=== PATIENT | male | born 1945 | race Caucasian/White ===

== ENCOUNTER → 2017-05-02 | Outpatient (CLI) | payer BC, MEDICARE ==
[~2017-05-02] MED LIST: IOPAMIDOL 370 MG/ML 200 ML INFUS..BTL INJ ONE; SODIUM CHLORIDE 0.9% 50ML 50 ML ONE
[2017-05-02 10:26] LABS: BLOOD UREA NITROGEN 11 mg/dL (7-26); BUN/CREATININE RATIO 13 (6-25); CREATININE, SERUM 0.82 mg/dL (0.72-1.25); EST GLOMERULAR FILTRATION RATE > 60 ML/MIN (60-)
--- NOTE | 2017-05-02 13:06 | Diagnostic Imaging Report ---
PROCEDURE: CT ABDOMEN WITH AND WITHOUT CONTRAST TECHNIQUE: The abdomen was scanned utilizing a multidetector helical scanner from the diaphragm to the iliac crest before and after the IV administration of 100 cc of Isovue 370 and the oral administration of water. Precontrast, arterial, venous and delayed phases were obtained as part of a renal mass protocol. Coronal and sagittal multiplanar reformations were obtained. COMPARISON: Patients [facility], CT, CT ABDOMEN/PELVIS W, 03/16/2017, 9:57. INDICATIONS: KIDNEY LESION FINDINGS: LOWER THORAX: No pulmonary nodules. Minimal right lower lobe dependent atelectasis. HEPATOBILIARY: 1.1 cm simple cyst in hepatic segment VII near the dome (series 3, image 22). No other focal hepatic lesions. No biliary ductal dilatation. Gallbladder is unremarkable. SPLEEN: No splenomegaly. PANCREAS: No focal masses or ductal dilatation. ADRENALS: No adrenal nodules. KIDNEYS: 2.0 x 1.9 x 1.7 cm partially exophytic heterogeneously enhancing (14, 67, 98, and 55 HU on precontrast, arterial, venous and delayed phases, respectively) mass in the lower pole of the right kidney (series 4, image 85), which contains enhancing mural nodules and septations (series 502, images 67 and 69). 4-5 mm hypodense lesion in the inferior pole of the right kidney (series 7, image 81), which is too small to characterize. No other focal renal lesions. No renal or ureteral calculi. No hydronephrosis or obstruction. Good opacification of the renal collecting system, renal pelves, and proximal and mid ureters, without filling defects, strictures, or extrinsic compressions. PERITONEUM / RETROPERITONEUM: No free air or fluid. PELVIC ORGANS: Bladder shows no focal lesions or wall thickening. Prostate is enlarged. Fat containing right inguinal hernia. LYMPH NODES: No intra-abdominal, retroperitoneal, pelvic, or inguinal adenopathy. VESSELS: The celiac trunk, superior and inferior mesenteric, and bilateral renal arteries are patent. Portal, superior mesenteric, and splenic veins are patent. IVC filter in place. No filling defects are seen in the IVC or renal veins. GI TRACT: Visualized portions of bowel show no dilation or obstruction. BONES AND SOFT TISSUES: No acute bony abnormalities. No aggressive lytic or blastic lesions. Soft tissues are unremarkable. IMPRESSION: 1. 2.0 cm enhancing lesion in the inferior pole of the right kidney, with imaging characteristics highly suspicious for renal cell carcinoma (likely clear cell subtype). No evidence of local adenopathy, vascular invasion or distant metastatic disease in the visualized abdomen. Barry Patrick M.D. Dictated by: Barry Patrick M.D. on 05/02/2017 at 13:15 Electronically approved by: Barry Patrick M.D. on 05/02/2017 at 13:15
== END ==
LOC: CT 08:58
PROVIDERS: ATTEND Internal Medicine
DX: N28.9 Disorder of kidney and ureter, unspecified (principal)
CPT/HCPCS: 36415; 74170; 82565; 84520; Q9967

== ENCOUNTER 2017-08-19 12:39 | Inpatient (IN) | payer BC, MEDICARE ==
[~2017-08-19] VITALS: Ht 152.4 cm; Wt 86.2 kg
[~2017-08-19 12:39] MED LIST changes: +AMLODIPINE BESYL5 MG PO; +COUMADIN3 MG PO; +GELATIN SPONGE SZ 100 ONE; -IOPAMIDOL 370 MG/ML 200 ML INFUS..BTL INJ ONE; +MANNITOL 25% 12.5GM/50ML 50 ML ONE; -SODIUM CHLORIDE 0.9% 50ML 50 ML ONE
--- OUTSIDE RECORDS SUMMARY | 2017-08-19 12:40 | XMS REPORT ---
Author Author [facility] Address Unknown Phone Unavailable Care Team Providers Care Supervisor [employer] Name Role Phone SEAN BENSON Unavailable Unavailable KAI GUILLAUME Unavailable Unavailable Problems This patient has no known problems. Allergies, Adverse Reactions, Alerts This patient has no known allergies or adverse reactions. Medications This patient has no known medications. Results Test Description Test Time Test Comments Text Results Atomic Results Result Comments CT ABDOMEN WOW [place] [address] Patient Name: GRACE INIGUEZ MR #: [id number] : 1945 Age/Sex: 72/M Req #: [id number] Adm Physician: Ordered by: SEAN BENSON MD Report #: [id number] Location: CT Room/Bed: Procedure: [id number] CT/CT ABDOMEN WOW Exam Date: 05/02/17 Exam Time: 1100 REPORT STATUS: Signed PROCEDURE: CT ABDOMEN WITH AND WITHOUT CONTRAST TECHNIQUE: The abdomen was scanned utilizing a multidetector helical scanner from the diaphragm to the iliac crest before and after the IV administration of 100 cc of Isovue 370 and the oral administration of water. Precontrast, arterial, venous and delayed phases were obtained as part of a renal mass protocol. Coronal and sagittal multiplanar reformations were obtained. COMPARISON: [facility], CT, CT ABDOMEN/PELVIS W, 03/16/2017, 9:57. INDICATIONS: KIDNEY LESION FINDINGS: LOWER THORAX: No pulmonary nodules. Minimal right lower lobe dependent atelectasis. HEPATOBILIARY: 1.1 cm simple cyst in hepatic segment VII near the dome (series 3, image 22). No other focal hepatic lesions. No biliary ductal dilatation. Gallbladder is unremarkable. SPLEEN: No splenomegaly. PANCREAS: No focal masses or ductal dilatation. ADRENALS: No adrenal nodules. KIDNEYS: 2.0 x 1.9 x 1.7 cm partially exophytic heterogeneously enhancing (14, 67, 98, and 55 HU on precontrast, arterial, venous and delayed phases, respectively) mass in the lower pole of the right kidney (series 4, image 85), which contains enhancing mural nodules and septations (series 502, images 67 and 69). 4-5 mm hypodense lesion in the inferior pole of the right kidney (series 7, image 81), which is too small to characterize. No other focal renal lesions. No renal or ureteral calculi. No hydronephrosis or obstruction. Good opacification of the renal collecting system, renal pelves, and proximal and mid ureters, without filling defects, strictures, or extrinsic compressions. PERITONEUM / RETROPERITONEUM: No free air or fluid. PELVIC ORGANS: Bladder shows no focal lesions or wall thickening. Prostate is enlarged. Fat containing right inguinal hernia. LYMPH NODES: No intra-abdominal, retroperitoneal, pelvic, or inguinal adenopathy. VESSELS: The celiac trunk, superior and inferior mesenteric, and bilateral renal arteries are patent. Portal, superior mesenteric, and splenic veins are patent. IVC filter in place. No filling defects are seen in the IVC or renal veins. GI TRACT: Visualized portions of bowel show no dilation or obstruction. BONES AND SOFT TISSUES : No acute bony abnormalities. No aggressive lytic or blastic lesions. Soft tissues are unremarkable. IMPRESSION: 1. 2.0 cm enhancing lesion in the inferior pole of the right kidney, with imaging characteristics highly suspicious for renal cell carcinoma (likely clear cell subtype). No evidence of local adenopathy, vascular invasion or distant metastatic disease in the visualized abdomen. Eulalia Patrick M.D. Dictated by: Eulalia Patrick M.D. on 05/02/2017 at 13:15 Electronically approved by : Eulalia Patrick M.D. on 05/02/2017 at 13:15 Dictated By : EULALIA PATRICK MD 14 Transcribed By: JHON on 05/02/171314 COPY TO: SEAN BENSON MD CT BRAIN WO [place] [address] Patient Name: GRACE INIGUEZ MR #: [id number] : 1945 Age/Sex: 71/M Req #: [id number] Adm Physician: Ordered by: KAI GUILLAUME MD Report #: [id number] Location: ER Room/Bed: Procedure: [id number] CT/CT BRAIN WO Exam Date: 03/16/17 Exam Time: 1115 REPORT STATUS: Signed Examination: CT BRAIN WITHOUT CONTRAST History:Fall. Head injury. Comparison studies:None Technique: Axial images were obtained from the skull base to the vertex. Coronal and sagittal images reconstructed from the axial data. Intravenous contrast: None given for this examination however, there is residual contrast seen from chest abdomen and pelvic CT performed earlier today. Findings: Scalp: No abnormalities. Bones: No fractures, blastic or lytic lesions. Brain sulci: Appropriate for age. Ventricles: Normal in size and configuration. No hydrocephalus. Extra-axial space: No abnormalities. Parenchyma: No abnormal densities. No masses, hemorrhage, acute or chronic vascular insults. Sellar/suprasellar region: No abnormalities. Craniocervical junction: Patent foramen magnum. No Chiari one malformation. Incidental findings: None. Impression: No intracranial abnormalities. Signed by: Dr. Kiya Marie M.D. on 03/16/2017 12:17 PM Dictated By: KIYA MENDEZ MD 16 Transcribed By: JEREMIAS on 1216 COPY TO: KAI GUILLAUME MD CT CERVICAL SPINE WO [place] [address] Patient Name: GRACE INIGUEZ MR #: [id number] : 1945 Age/Sex: 71/M Req #: [id number] Adm Physician: Ordered by: KAI GUILLAUME MD Report #: [id number] Location: ER Room/Bed: Procedure: [id number] CT/CT CERVICAL SPINE WO Exam Date: 03/16/17 Exam Time: 1115 REPORT STATUS: Signed Examination: CT CERVICAL SPINE WITHOUT CONTRAST HISTORY:Neck pain. Fall. Evaluate for fracture. COMPARISON:None. TECHNIQUE: Multidetector helical axial images were obtained without contrast from the foramen magnum to T1. Coronal and sagittal reformatted images were done. Bone and soft tissue windows were evaluated. FINDINGS: Alignment:Normal alignment and lordosis. Vertebrae: Normal height and density. No acute fracture, infection or neoplasm. Disc space heights: Normal height. Caliber of spinal canal: Developmentally normal. Posterior fossa and craniocervical junction: Foramen magnum patent. No Chiari 1 malformation. Soft tissues: No abnormality. Degenerative changes: Moderate right facet and mild bilateral uncovertebral arthropathy at C4-C5 with mild right neural foraminal narrowing. No left foraminal or canal stenosis. Mild bilateral uncovertebral arthropathy at C5-C6 with mild bilateral neural foraminal narrowing. No canal stenosis. The remaining cervical levels demonstrate no disc bulge/ herniation or foraminal or canal stenosis. IMPRESSION: 1. No acute abnormalities. 2. Mild degenerative changes of the cervical spine, as detailed above. Signed by: Dr. Kiya Marie M.D. on 03/16/2017 12:19 PM Dictated By: KIYA MENDEZ MD 18 Transcribed By: JEREMIAS on 1218 COPY TO: KAI GUILLAUME MD CT CHEST W [place] [address] Patient Name: GRACE INIGUEZ MR #: [id number] : 1945 Age/Sex: 71/M Req #: [id number] Adm Physician: Ordered by: KAI GUILLAUME MD Report #: [id number] Location: ER Room/Bed: Procedure: [id number] CT/CT CHEST W Exam Date: 03/16/17 Exam Time: 1005 REPORT STATUS: Signed ADDENDUM #1 Nondisplaced transverse fracture of the right posterior 11th rib. Signed by: Dr. Ayana Meier M.D. on 03/16/2017 11:05 AM ORIGINAL REPORT EXAM: CT Chest WITH contrast INDICATION: Trauma COMPARISON: CT chest 10/19/2013 TECHNIQUE: Chest was scanned utilizing a multidetector helical scanner from the lung apex through the level of the diaphragm after administration of IV contrast. Coronal and sagittal reconstructions were submitted for interpretation. Protocol: General survey IV CONTRAST: 100 mL of Isovue 370 COMPLICATIONS: None RADIATION DOSE: Total exam DLP: 903.3 mGy*cm. CTDIvol has been reviewed. It is below the limits set by the Radiation Protocol Committee (RPC). FINDINGS: LINES/ TUBES: None. Heart: No cardiomegaly. No pericardial effusion. Vessels: No intraluminal filling defect within the pulmonary arteries to the segmental level. Normal thoracic aorta and coronary arteries. Mediastinum: No mediastinal or hilar mass or lymphadenopathy. Normal thyroid. Lungs: No parenchymal mass. No focal consolidation. Normal parenchyma. Bibasilar atelectasis. Pleura: No pleural effusion. No pneumothorax. Soft tissues: Normal. No axillary mass or lymphadenopathy. Bones: No acute osseous abnormality. Degenerative changes of the thoracic spine. Adrenal glands: No adrenal nodules.. Abdomen: The partially visualized portions of the upper abdomen are unremarkable.. IMPRESSION: No acute abnormality of the chest. Signed by: Dr. Ayana Meier M.D. on 03/16/2017 10:56 AM Dictated By: AYANA MEIER MD 1105 Transcribed By: JEREMIAS on 03/16/17 1056 COPY TO: KAI GUILLAUME MD CT ABDOMEN/PELVIS W [place] [address] Patient Name: GRACE INIGUEZ MR #: [id number] : 1945 Age/Sex: 71/M Req #: [id number] Adm Physician: Ordered by: KAI GUILLAUME MD Report #: [id number] Location: ER Room/Bed: Procedure: [id number] CT/CT ABDOMEN/PELVIS W Exam Date: 03/16/17 Exam Time: 1005 REPORT STATUS: Signed EXAM: CT Abdomen and Pelvis WITH contrast INDICATION: Abdominal pain COMPARISON: None. TECHNIQUE: Abdomen and pelvis were scanned utilizing a multidetector helical scanner from the lung base to the pubic symphysis after administration of contrast. Coronal and sagittal reformations were obtained. Protocol: General survey IV CONTRAST: 100 mL of Isovue 370 ORAL CONTRAST: None COMPLICATIONS: None RADIATION DOSE: Total Exam DLP: 903.3 mGy*cm. CTDIvol has been reviewed. It is below the limits set by the Radiation Protocol Committee (RPC). FINDINGS: LINES: None. Lower thorax: No parenchymal abnormality. No pneumothorax. No pleural effusion. Liver: No focal mass. No hepatomegaly. Normal parenchyma. The hepatic and portal veins are patent. Hypodensity in the right lobe of the liver that is too small to characterize. Gallbladder: No gallstones. No gallbladder distention. Biliary tree: No intrahepatic duct dilation. No extrahepatic duct dilation. Spleen: No splenomegaly. No focal mass. Pancreas: Normal parenchymal enhancement. No focal mass. Normal pancreatic duct. No peripancreatic inflammatory changes. Kidneys: No obstructing calculi. No hydronephrosis. 1.5 cm partially enhancing exophytic mass is present in the inferior pole of the right kidney, series 2 image 71. No cysts. No perinephric soft tissue inflammatory changes. Adrenal glands: No adrenal nodules.. Bladder: Normal urinary bladder. Pelvic organs: Normal. GI: No bowel wall thickening. No air-fluid levels. The stomach and small bowel are normal. The colon is normal. Normal appendix. A moderate amount of retained feces limits intraluminal evaluation of the colon. Peritoneum/retroperitoneum: No pneumoperitoneum. No ascites. No drainable fluid collection. Fat-containing right inguinal hernia. Lymph nodes: No lymphadenopathy. . Vessels: The abdominal aorta and iliac vessels are patent. The celiac, superior mesenteric, and inferior mesenteric arteries are patent. Single bilateral renal arteries are patent. IVC filter. Bones: No focal abnormality. Nondisplaced transverse fracture of the posterior right 11th rib, series 2 image 44. Soft tissues: No focal abnormality. IMPRESSION: Nondisplaced transverse fracture of the posterior right 11th rib. Partially enhancing exophytic mass in the inferior pole the right kidney may represent a hyperdense cyst or renal cell carcinoma. A nonemergent CT of the abdomen with renal mass protocol may provide additional information for further characterization. Signed by: Dr. Ayana Meier M.D. on 03/16/2017 11:04 AM Dictated By: AYANA MEIER MD Transcribed By: JEREMIAS on 03/16/17 110 COPY TO: KAI GUILLAUME MD RIBS UNILAT W/CXR [place] [address] Patient Name: GRACE INIGUEZ MR #: [id number] : 1945 Age/Sex: 71/M Req #: [id number] Adm Physician: Ordered by: KAI GUILLAUME MD Report #: [id number] Location: ER Room/Bed: Procedure: [id number] DX/RIBS UNILAT W/CXR Exam Date: 03/16/17 Exam Time: 0940 REPORT STATUS: Signed EXAMINATION: Chest, PA. RIBS UNILAT W/CXR INDICATION: Chest pain COMPARISON: Portable chest 11/26/2010 FINDINGS: LINES: None. Heart: Normal cardiac silhouette. Vascular: The pulmonary vasculature is within normal limits. Mediastinum: No mediastinal, hilar, or axillary mass or lymphadenopathy. Lungs: No parenchymal mass. No focal consolidation. Pleura: No pleural effusion. No pneumothorax. Bones: No acute osseous abnormality. No rib fracture is identified. Soft tissues: Normal. Impression: No acute radiographic abnormality. Signed by: Dr. Ayana Meier M.D. on 03/16/2017 10:03 AM Dictated By: AYANA MEIER MD 100 Transcribed By: JEREMIAS on 03/16/17 100 COPY TO: KAI GUILLAUME MD
[2017-08-19] MEDS ORDERED: CEFAZOLIN SOD 1 GM VIAL ONE (13:45)
[2017-08-19 14:16] LABS: INR 1.17
[2017-08-19] MEDS ORDERED: IOPAMIDOL 200 MG/ML 20 ML VIAL IT ONE (15:08)
[2017-08-19] MEDS ORDERED: OXYMETAZOLINE HCL 0.05% NAS 1 SPRAY BTL ONE (16:19)
[2017-08-19] MEDS: D5.45%NS/KCL 20MEQ 1,000 ML IV SCH (17:17)
[2017-08-19] MEDS ORDERED: NALOXONE HCL INJ 0.4 MG/ML AMP IV PRN ×2 (17:30→22:30)
[2017-08-19] MEDS ORDERED: ACETAMINOPHEN 1000 MG/100 ML IV PRN (17:30)
[2017-08-19] MEDS ORDERED: DIPHENHYDRAMINE HCL INJ 50 MG/ML VIAL IM PRN (17:30)
[2017-08-19] MEDS ORDERED: ONDANSETRON HCL INJ 2 MG/ML VIAL IV PRN (17:30)
[2017-08-19] MEDS ORDERED: METOCLOPRAMIDE HCL 10 MG/2ML VIAL IV PRN (17:30)
[2017-08-19] MEDS ORDERED: MORPHINE SULFATE 1 MG/ML 30ML PCA IV PRN (17:30)
[2017-08-19] MEDS ORDERED: MORPHINE SULFATE 2 MG/ML SYR ONE (17:53)
[2017-08-19] MEDS ORDERED: FENTANYL CITRATE/PF 100MCG/2 ML INJ ONE ×2 (18:02→18:35)
[2017-08-19] MEDS ORDERED: MORPHINE SULFATE 1 MG/ML 30ML PCA ONE (18:28)
--- NOTE | 2017-08-19 18:33 | Diagnostic Imaging Report ---
PROCEDURE: A single AP view of the chest. COMPARISON: None. INDICATIONS: s/p nephrectomy, r/o pnuemothorax FINDINGS: Lines/tubes: Enteric tube appears to have its tip in the distal esophagus or. Lungs: The lungs are well inflated and clear. There is no evidence of pneumonia or pulmonary edema. Pleura: There is no pleural effusion or pneumothorax. Heart and mediastinum: The heart and the mediastinum are unremarkable. Bones: No acute bony abnormality. There is a small pneumoperitoneum. Subcutaneous air in the right lateral chest wall. IMPRESSION: No evidence of pneumothorax. Small pneumoperitoneum and subcutaneous emphysema of the right chest wall are presumably related to recent surgery. Enteric tube appears to have its tip in the distal esophagus. Consider repositioning. Dictated by: Kahlil Navarro M.D. on 08/19/2017 at 18:34 Electronically approved by: Kahlil Navarro M.D. on 08/19/2017 at 18:34
[2017-08-19] MEDS ORDERED: MIDAZOLAM HCL 2 MG/2 ML VIAL ONE (18:35)
[2017-08-19] MEDS ORDERED: MORPHINE SULFATE INJ 10 MG/ML ONE (18:35)
[2017-08-19] MEDS ORDERED: PROPOFOL IV EMULSION 10 MG/ML 20 ML VIAL ONE (19:16)
[2017-08-19] MEDS ORDERED: ONDANSETRON HCL INJ 2 MG/ML VIAL ONE (19:16)
[2017-08-19] MEDS ORDERED: SEVOFLURANE INHAL SOLN 250 ML PEN BTL ONE (19:16)
[2017-08-19] MEDS ORDERED: ROCURONIUM BROMIDE 10 MG/ML 5ML VIAL ONE (19:16)
[2017-08-19] MEDS ORDERED: DEXAMETHASONE SOD PHOS INJ 4 MG/ML VIAL ONE (19:16)
[2017-08-19] MEDS ORDERED: LIDOCAINE HCL 2% LOCAL INJ 5 ML SDV VIAL INJ ONE (19:16)
[2017-08-19 20:00] VITALS: BP 111/77
[2017-08-19] MEDS: SODIUM CHLORIDE 0.9% 250ML IRRIG IR SCH (21:30)
[2017-08-19] MEDS ORDERED: CEFAZOLIN SOD 1 GM/NS 50ML 50 ML IV SCH (22:00)
[2017-08-19 22:50] VITALS: BP 111/77
[2017-08-19] MEDS: CEFAZOLIN SOD 1 GM VIAL IV SCH (23:59)
[2017-08-20] VITALS (7 sets, daily range): BP systolic 111–135; BP diastolic 62–81
[2017-08-20] MEDS: D5.45%NS/KCL 20MEQ 1,000 ML IV SCH ×5 (01:17→17:43)
[2017-08-20] MEDS: SODIUM CHLORIDE 0.9% 250ML IRRIG IR SCH ×3 (01:30→08:28)
[2017-08-20 06:37] LABS: BASOPHILS % 0.2 % (0.0-1.0); EOSINOPHILS % 0.3 % (0.0-6.0); HEMATOCRIT 39.2 % (38.2-49.6); HEMOGLOBIN 13.7 g/dL (14.0-18.0); LYMPHOCYTES # (AUTO) 1.5 (1.0-3.2); MEAN CORPUSCULAR HEMOGLOBIN 34.6 pg (28-32); MEAN CORPUSCULAR HGB CONC 34.9 g/dL (31-35); MONOCYTES # (AUTO) 0.9 (0.2-0.8); NEUTROPHILS # (AUTO) 9.1 (2.1-6.9); NEUTROPHILS % 78.2 % (38.7-80.0); PLATELET COUNT 180 x10e3/uL (140-360); RED BLOOD COUNT 3.96 x10e6/uL (4.3-5.7); RED CELL DISTRIBUTION WIDTH 12.5 % (11.7-14.4)
[2017-08-20] MEDS: CEFAZOLIN SOD 1 GM VIAL IV SCH ×2 (07:02→14:05)
[2017-08-20 07:12] LABS: ANION GAP 13.4 mmol/L (8-16); CALCIUM 8.2 mg/dL (8.4-10.2); CREATININE, SERUM 1.25 mg/dL (0.72-1.25); POTASSIUM 4.4 mmol/L (3.5-5.1)
[2017-08-20] MEDS: DOCUSATE SODIUM 100 MG CAP PO SCH ×2 (08:29→17:27)
--- NOTE | 2017-08-20 08:35 | History and Physical ---
CHIEF COMPLAINT: The patient admitted by urologist, Dr. Jeovanny Hawkins, for right partial nephrectomy for right renal mass. HISTORY OF PRESENT ILLNESS: A 72-year-old pleasant white male with a past medical history of REPORT NOT COMPLETED, LENGTH 0:49 Job#: [id number] RI
--- NOTE | 2017-08-20 08:55 | Consultation ---
DATE OF CONSULTATION: MEDICAL CONSULT CHIEF COMPLAINT: The patient admitted by urologist, Dr. Jeovanny Hawkins, for right partial nephrectomy for right renal mass. HISTORY OF PRESENT ILLNESS: A 72-year-old pleasant white male with past medical history of multiple medical problems was admitted yesterday by urologist, Dr. Jeovanny Hawkins, for right partial nephrectomy for right renal mass. The patient had surgery yesterday afternoon. The patient was admitted under my care for further hospital stay. At present, the patient laying comfortably in bed. No apparent distress. No chest pain. No shortness of breath. No nausea, vomiting, diarrhea. No abdominal pain. No loss of consciousness. No palpitations. No headaches. No hematemesis. No melena. No hematuria. No dysuria. No fever. No cough. No witnessed seizures. PAST MEDICAL HISTORY 1. 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 2. Left lower extremity DVT in November 2010. 3. Hyperlipidemia. 4. Hypertension. MEDICATIONS: At home, the patient was takin. Coumadin 8 mg p.o. daily, on hold since last Saturday for surgery. 2. Norvasc 5 mg p.o. daily. ALLERGIES: NO KNOWN DRUG ALLERGIES. SURGICAL HISTORY: None. SOCIAL HISTORY: Former smoker. No alcohol. No illicit drug use. and lives with family. REVIEW OF SYSTEMS: As per HPI. FAMILY HISTORY: Noncontributory. PHYSICAL EXAMINATION GENERAL: The patient is alert, awake and oriented times 3. No apparent distress. Laying in bed. VITALS: Temperature is 98, pulse 74 per minute, respirations 20, blood pressure 112/76, saturation 98%. HEENT: No cyanosis. No icterus. No pallor. Normocephalic and atraumatic. PERRLA. NECK: Soft and supple. No JVD. No lymphadenopathy. LUNGS: Air entry bilaterally. HEART: Equal heart sounds. ABDOMEN: Soft. Right surgical incision with dressing. Right-sided drain plus. DATA CENTER OPERATOR: Alert, awake and oriented times 3. No focal deficit. EXTREMITIES: No cyanosis, clubbing or edema present. No calf pain. LABS: This morning is white count 11.6, hemoglobin 13.7, hematocrit 39.2, and platelets 180,000. Sodium 139, potassium 4.4, chloride 108, bicarb 22, BUN 16, creatinine 1.25, glucose 142. Chest x-ray postop no evidence of pneumothorax. Small pneumoperitoneum and subcutaneous emphysema, right chest, presumably from recent surgery. ASSESSMENT 1. Status post right partial nephrectomy secondary to right renal mass. 2. History of recurrent pulmonary embolism and deep venous thrombosis. 3. Hypertension. 4. Hyperlipidemia. PLAN: Admit the patient to IMCU. Postop care and pain management as per urologist, Dr. Hawkins. The patient is n.p.o. The patient has an NG tube to wall suction. We will restart the patient's anticoagulation once okay and cleared by urologist, Dr. Jeovanny Hawkins. Discussed with the patient's in detail. Further care and treatment as the patient is in the hospital. Job#: [id number] ASHU
[2017-08-20] MEDS: DEXTROSE 5%/0.45% SOD CHL 1,000 ML IV SCH ×2 (09:00→09:39)
[2017-08-20] MEDS: HYDROMORPHONE 0.2MG/ML-SOD CHL 30ML PCA SYRINGE IV PRN ×2 (10:50)
[2017-08-21] VITALS (8 sets, daily range): BP systolic 114–142; BP diastolic 67–79
[2017-08-21] MEDS: D5.45%NS/KCL 20MEQ 1,000 ML IV SCH ×4 (04:22→22:04)
[2017-08-21 06:17] LABS: BASOPHILS % 0.2 % (0.0-1.0); EOSINOPHILS # (AUTO) 0.1 (0.0-0.4); EOSINOPHILS % 0.7 % (0.0-6.0); HEMATOCRIT 39.7 % (38.2-49.6); HEMOGLOBIN 13.8 g/dL (14.0-18.0); LYMPHOCYTES # (AUTO) 1.5 (1.0-3.2); LYMPHOCYTES % 12.2 % (18.0-39.1); MEAN CORPUSCULAR HEMOGLOBIN 34.6 pg (28-32); MEAN CORPUSCULAR HGB CONC 34.8 g/dL (31-35); MEAN CORPUSCULAR VOLUME 99.5 fL (81-99); MONOCYTES # (AUTO) 1.3 (0.2-0.8); MONOCYTES % 10.2 % (4.4-11.3); NEUTROPHILS # (AUTO) 9.5 (2.1-6.9); NEUTROPHILS % 76.4 % (38.7-80.0); PLATELET COUNT 161 x10e3/uL (140-360); RED BLOOD COUNT 3.99 x10e6/uL (4.3-5.7); RED CELL DISTRIBUTION WIDTH 12.2 % (11.7-14.4)
[2017-08-21 06:49] LABS: ANION GAP 10.2 mmol/L (8-16); CALCIUM 8.8 mg/dL (8.4-10.2); CREATININE, SERUM 1.3 mg/dL (0.72-1.25); POTASSIUM 4.2 mmol/L (3.5-5.1)
[2017-08-21] MEDS: DOCUSATE SODIUM 100 MG CAP PO SCH ×2 (08:45→17:56)
[2017-08-21] MEDS: HYDROMORPHONE 0.2MG/ML-SOD CHL 30ML PCA SYRINGE IV PRN (17:55)
[2017-08-21] MEDS ORDERED: ACETAMINOPHEN 650 MG SUPP PR PRN (21:30)
[2017-08-22] VITALS (8 sets, daily range): BP systolic 114–156; BP diastolic 65–86
[2017-08-22 07:06] LABS: BASOPHILS % 0.2 % (0.0-1.0); EOSINOPHILS # (AUTO) 0.2 (0.0-0.4); EOSINOPHILS % 2.3 % (0.0-6.0); HEMATOCRIT 34.8 % (38.2-49.6); HEMOGLOBIN 12.2 g/dL (14.0-18.0); LYMPHOCYTES # (AUTO) 1.3 (1.0-3.2); LYMPHOCYTES % 13.7 % (18.0-39.1); MEAN CORPUSCULAR HEMOGLOBIN 34.9 pg (28-32); MEAN CORPUSCULAR HGB CONC 35.1 g/dL (31-35); MEAN CORPUSCULAR VOLUME 99.4 fL (81-99); MONOCYTES # (AUTO) 0.9 (0.2-0.8); MONOCYTES % 9.5 % (4.4-11.3); NEUTROPHILS # (AUTO) 7.3 (2.1-6.9); PLATELET COUNT 146 x10e3/uL (140-360); RED CELL DISTRIBUTION WIDTH 12.1 % (11.7-14.4)
[2017-08-22 07:34] LABS: ANION GAP 10.7 mmol/L (8-16); BLOOD UREA NITROGEN 10 mg/dL (7-26); BUN/CREATININE RATIO 8 (6-25); CALCIUM 8.5 mg/dL (8.4-10.2); CARBON DIOXIDE 23 mmol/L (22-29); CHLORIDE 107 mmol/L (98-107); CREATININE, SERUM 1.18 mg/dL (0.72-1.25); EST GLOMERULAR FILTRATION RATE > 60 ML/MIN (60-); GLUCOSE 116 mg/dL (74-118); POTASSIUM 3.7 mmol/L (3.5-5.1); SODIUM 137 mmol/L (136-145)
[2017-08-22] MEDS ORDERED: BISACODYL 10 MG SUPP PR PRN (09:00)
[2017-08-22] MEDS ORDERED: BISACODYL 10 MG SUPP PR NR (09:30)
[2017-08-22] MEDS: DOCUSATE SODIUM 100 MG CAP PO SCH ×2 (09:38→17:29)
[2017-08-22] MEDS: D5.45%NS/KCL 20MEQ 1,000 ML IV SCH (09:38)
[2017-08-22] MEDS: TRAMADOL HCL 50 MG TAB PO PRN ×3 (10:12→18:23)
[2017-08-22] MEDS: HYDROCODONE/APAP 10MG-325MG TAB PO PRN ×3 (12:09→22:52)
[2017-08-23] VITALS: BP 132/72
[2017-08-23] MEDS: D5.45%NS/KCL 20MEQ 1,000 ML IV SCH (00:45)
[2017-08-23 04:00] VITALS: BP 125/70
[2017-08-23] MEDS: HYDROCODONE/APAP 10MG-325MG TAB PO PRN ×2 (05:39→11:35)
[2017-08-23 07:08] LABS: BASOPHILS % 0.3 % (0.0-1.0); EOSINOPHILS # (AUTO) 0.4 (0.0-0.4); EOSINOPHILS % 4.8 % (0.0-6.0); LYMPHOCYTES # (AUTO) 1.2 (1.0-3.2); LYMPHOCYTES % 15.8 % (18.0-39.1); MEAN CORPUSCULAR HEMOGLOBIN 34.6 pg (28-32); MEAN CORPUSCULAR HGB CONC 35.3 g/dL (31-35); MONOCYTES # (AUTO) 0.8 (0.2-0.8); MONOCYTES % 9.6 % (4.4-11.3); NEUTROPHILS # (AUTO) 5.4 (2.1-6.9); NEUTROPHILS % 69.1 % (38.7-80.0); PLATELET COUNT 151 x10e3/uL (140-360); RED BLOOD COUNT 3.47 x10e6/uL (4.3-5.7)
[2017-08-23 07:24] LABS: ANION GAP 9.6 mmol/L (8-16); BLOOD UREA NITROGEN 11 mg/dL (7-26); BUN/CREATININE RATIO 10 (6-25); CALCIUM 8.5 mg/dL (8.4-10.2); CARBON DIOXIDE 23 mmol/L (22-29); CHLORIDE 104 mmol/L (98-107); CREATININE, SERUM 1.12 mg/dL (0.72-1.25); EST GLOMERULAR FILTRATION RATE > 60 ML/MIN (60-); GLUCOSE 110 mg/dL (74-118); POTASSIUM 3.6 mmol/L (3.5-5.1); SODIUM 133 mmol/L (136-145)
[2017-08-23 08:44] VITALS: BP 141/75
[2017-08-23] MEDS: DOCUSATE SODIUM 100 MG CAP PO SCH (09:00)
[2017-08-23] MEDS: TRAMADOL HCL 50 MG TAB PO PRN (10:44)
[2017-08-23] MEDS ORDERED: COLACE100 MG PO (12:21)
[2017-08-23] MEDS ORDERED: NORCO 10-325 T1 EACH PO (12:22)
--- NOTE | 2017-09-16 23:45 | Operative Report ---
DATE OF PROCEDURE: August 19, 2017 PREOPERATIVE DIAGNOSES 1. Cancer on the right kidney. 2. Urinary tract infections. POSTOPERATIVE DIAGNOSES 1. Cancer on the right kidney. 2. Urinary tract infections. OPERATIONS PERFORMED 1. Cystourethroscopy with bilateral ureteral catheterization and retrograde ureteropyelography (separately performed for the urinary tract infections). 2. Interpretation of retrograde ureteropyelography. 3. Supervision of fluoroscopy. No radiologist present. 4. Right lower pole partial nephrectomy (separately performed for the renal cell carcinoma). HEAD BAKER: Dr. Stefani Hawkins COMPLICATIONS: None. CLINICAL SUMMARY: Don Stone is a 72-year-old man with urinary tract infection. He was found to have a solid enhancing tumor on the right lower pole. Patient was brought for the above procedures. He is aware of the risks of bleeding, infection, injury to adjacent structures, need for additional procedures, and elected to proceed. OPERATIVE PROCEDURE IN DETAIL: Informed consent was verified. Don Stone was properly identified, taken to the operating room, placed on the cystoscopy table in supine position. Anesthesia was uneventfully begun. The patient then carefully and gently repositioned in the dorsal lithotomy position with all pressure points well padded. His genitalia were prepared and draped in usual sterile fashion. The 22.5-Estonian cystoscope sheath with the visual obturator in place was atraumatically inserted in patient's urethra and guided down the unremarkable urethra through the normal sphincteric region through the prostate bed, which was significant for having a median lobe. In the bladder, there were small stones present with long-standing obstruction. There were also heavy trabeculations and small diverticula. A ureteral catheter was used to cannulate each ureter and retrograde ureteral pyelograms were performed. Interpretation of retrograde ureteropyelography: Contrast was instilled in retrograde fashion bilaterally. There were no tumors, no stones, and no diverticula. Unobstructed drainage was observed bilaterally fluoroscopically. We could not appreciate any change of the collecting system in light of the known the tumor. A Palmer catheter was placed. A digital rectal examination revealed a 40-g prostate that was smooth and nonfluctuant without any nodules. The patient was then transported to the open operating room, where he was carefully gently repositioned on the operating table in the flank position with all pressure points carefully well padded. The patient's chest, back, and abdomen were shaved, prepared and draped in usual sterile fashion. A right flank incision was made and carried through all layers of the abdominal and chest wall. An extrapleural extraperitoneal approach was utilized. We isolated the right kidney completely. We isolated the vasculature. However, we chose not to clamp the renal artery and due to the fact that the tumor was located at the lower pole, we utilized umbilical tape. Umbilical tape was placed around the junction between the midpole and lower pole of the kidney. It was tied down in order to achieve hemostasis and temporarily occlude the blood flow. Once this was performed, the tumor was circumscribed and sent for histopathological analysis, which revealed negative margins. We quickly oversewed the various bleeders at the lower pole with 7-0 chromic suture. We achieved excellent hemostasis. We released the hemo-occlusion and removed the umbilical tape to verify good hemostasis. We utilized FloSeal and then, approximated the renal capsule utilizing interrupted chromic sutures with Surgicel utilized as well. Excellent hemostasis was achieved. We approximated the Gerota's fascia to cover lower pole of the kidney. A Luis Fernando drain was placed through a separate stab incision, secured to the skin with nylon suture. Patient's incision was then approximated in multiple layers utilizing heavy Vicryl sutures in interrupted figure-of-8 fashion. The skin was approximated with skin tanna. Sterile dressings were applied. The patient was then uneventfully reversed from anesthesia and taken to recovery room in stable condition. There were no complications to procedure. Patient tolerated the procedure well. Sponge and needle and instrument counts were correct times 2 at the end of the case. For estimated blood loss, please refer to anesthetic record. Plan will be to proceed with routine postoperative care and of course life-long urological followup. Job#: [id number] CQ cc:SEAN BENSON M.D.
--- NOTE | 2017-10-10 20:16 | Discharge Summary ---
CHIEF COMPLAINT: Right renal mass. FINAL DIAGNOSES: 1. Right renal mass. 2. Status post right partial nephrectomy. 3. Hypertension. PROCEDURES: Cystoscopy and retrograde pyelogram. Right partial versus a radical nephrectomy, Dr. Hawkins. DISPOSITION: Home. This 72-year-old male patient of Dr. Hawkins underwent day procedure for right partial nephrectomy regarding right renal mass. Now being admitted postprocedure for observation and postop care. Patient also will be monitored and managed for history of recurrent PE and DVT, hypertension, hyperlipidemia. Will be addressing the patient in IMCU. Dr. Hawkins will continue the urology follow. I will be maintaining medical. He has onboard NG-tube to wall suction. Patient was in IMCU postop, n.p.o., no hematuria and was on IV fluids, acetaminophen 1000 mg q.6, cefazolin 1 gram IV q.8, morphine for pain, hydromorphone for pain. Laboratory studies were showing stable electrolytes. Kidney functions stable. Glucose 142. CBC: Hemoglobin of 13.7 and white cell count of 11,600. Patient was resting comfortably and was able to be ambulatory. Medications were continuing. Hemoglobin now 13.8 and white cell count 12,400 on 08/21. He was running a little bit of a low-grade temp of 99. Will continue the acetaminophen. Continue to be ambulatory. Palmer was able to be discontinued per Dr. Hawkins. Follow white cell count 9800. Followup temp on 08/23 of 97.5. Now on a clear liquid diet. Franco-Arenas drain was able to be discontinued. Plan is under way for discharge to home. The patient was cleared for discharge and was released on 08/23/2017 in stable condition. With discharge home, patient will be on a regular diet. Was instructed to change the dressing at the drainage site twice a day. May shower, not bathe. Activity level as tolerated. He will be returning back to Dr. Hawkins's office in 3 weeks. He was instructed to bring his staple removal with him at that time. The patient will be following back up with me in one week. Patient was instructed to start back on his Coumadin on Saturday, the 26 of August. He will continue on amlodipine besylate 5 mg daily. Colace 100 mg daily. [place] 10/325 one tablet as needed p.o. for pain every 4-6 hours. If the patient has any difficulties urinating or notices any redness in his urine, he will be contacting Dr. Hawkins immediately. Dictated by CARLEE Nascimento SEAN BENSON MD Job#: [id number]
== END 2017-08-23 13:35 | disposition home or self-care (01) | DRG 657 ==
LOC: OR 12:39 → IMCU 18:49 → MED/SURG 08-21 12:24
PROVIDERS: ADMIT Internal Medicine; ATTEND Internal Medicine
PROC: BT141ZZ Fluoroscopy of Kidneys, Ureters and Bladder using Low Osmolar Contrast (ICD-10-PCS; 2017-08-19)
PROC: 0TB00ZZ Excision of Right Kidney, Open Approach (ICD-10-PCS; principal; 2017-08-19 15:10)
DX: C64.1 Malignant neoplasm of right kidney, except renal pelvis (principal); N39.0 Urinary tract infection, site not specified; Z86.718 Personal history of other venous thrombosis and embolism; I10 Essential (primary) hypertension; E78.5 Hyperlipidemia, unspecified; Z86.711 Personal history of pulmonary embolism; Z87.891 Personal history of nicotine dependence; Z79.01 Long term (current) use of anticoagulants; Z95.828 Presence of other vascular implants and grafts
CPT/HCPCS: 36415; 71045; 74420; 80048; 80053; 82948; 83735; 85025; 85610; 85730; 86850; 86900; 86920; 87040; 88307; 88309; 88329; J0690; J1100; J2001; J2150; J2250; J2270; J2405; Q9966

== ENCOUNTER 2017-10-13 09:05 | Emergency (ER) | payer BC, MEDICARE ==
[~2017-10-13] VITALS: Ht 180.3 cm; Wt 83.9 kg
[~2017-10-13 09:05] MED LIST changes: +COLACE100 MG PO; -GELATIN SPONGE SZ 100 ONE; -MANNITOL 25% 12.5GM/50ML 50 ML ONE; +NORCO 10-325 T1 EACH PO
--- OUTSIDE RECORDS SUMMARY | 2017-10-13 09:08 | XMS REPORT | Continuity of Care Document ---
Author Author [facility] Organization [facility] Address [address] [place] [address] Phone Unavailable Care Team Providers Care President Finance [employer] Name Role Phone SEAN BENSON MD PCP Insurance Providers Guarantor Don Iniguez Address [address] [place] [address] Email [email or web address] Medicare A Only Policy Number [id number] Subscriber's Name Don Iniguez Relationship 18 Self / Same As Patient Effective Date 17 [facility] Policy Number [id number] Subscriber's Name Don Iniguez Relationship 18 Self / Same As Patient Group Number [id number] Group Name [employer]. Effective Date 15 Advance Directives Directive Response Recorded Date/Time Does the patient have an advance directive? No 10/20/13 3:06am If yes, is advance directive on file with [facility]? No 10/20/13 3:06am If not on file with [facility] will patient provide a copy? No 10/20/13 3:06am Do you have a Directive to Physician? No 08/16/17 4:31pm Do you have a Medical Power of Window Covering Sales Consultant? No 08/16/17 4:31pm Do you have an out of hospital Do Not Resuscitate Order? No 08/16/17 4:31pm Do you have any special needs we should be aware of? No 08/16/17 4:31pm Do you have a support person here with you today? Yes 08/19/17 12:36pm Did patient receive Notice of Privacy Practices? Yes 08/19/17 12:36pm Did patient receive patient rights and responsibilities? Yes 08/19/17 12:36pm Problems No problem information available. Medications Current Home Medications Medication Dose Units Route Directions Days Qty Instructions Start Date Amlodipine Besylate 5 Mg Tablet 5 Mg Oral Daily 30 Tab Docusate Sodium (Colace) 100 Mg Cap 100 Mg Oral Daily 30 Cap Hydrocodone Bit/Acetaminophen ([place] 10-325 Tablet) 1 Each Tablet 1 Tab Oral As Needed as needed for Pain Warfarin Sodium (Coumadin*) 3 Mg Tablet 9 Mg Oral Today At 5:00PM 7 Tab Social History Social History Problem Response Recorded Date/Time Onset Date Status Hx Psychiatric Problems No 10/20/2013 3:06am Not Applicable Not Applicable Hx Eating Disorder No 08/19/2017 10:50pm Not Applicable Not Applicable Hx Substance Use Disorder No 08/19/2017 10:50pm Not Applicable Not Applicable Hx Depression No 11/22/2010 9:49pm Not Applicable Not Applicable Hx Alcohol Use No 11/22/2010 9:49pm Not Applicable Not Applicable Hx Substance Use Treatment No 08/19/2017 10:50pm Not Applicable Not Applicable Hx Physical Abuse No 08/19/2017 10:50pm Not Applicable Not Applicable Smoking Status Start Date Stop Date Current some day smoker Hospital Discharge Instructions No hospital discharge instruction information available. Plan of Care Discharge Date 08/23/17 1:35pm Disposition HOME, SELF-CARE Instructions/Education Provided Infection Control Prescriptions See Medication Section Additional Instructions/Education REGULAR DIET ACTIVITY TOLERATED SCHEDULE FOLLOW UP APPOINTMENT WITH DR. WALLS IN ABOUT 3 WEEKS. TEL: [phone], BRING PROVIDED STAPLE REMOVER WITH YOU SCHEDULE FOLLOW UP APPOINTMENT WITH DR. ALMANZA IN 1 WEEK. TEL: [phone] CHANGE DRESSING TO DRAINAGE SITE TWICE DAILY, MAY SHOWER Functional Status Query Response Date Recorded FUNCTIONAL STATUS . August 20, 2017 2:36pm Assistive Devices None August 19, 2017 10:50pm Ambulation Ability Independent August 19, 2017 10:50pm Toileting Ability Independent August 22, 2017 10:34am Allergies, Adverse Reactions, Alerts Allergen Type Severity Reaction Status Last Updated No Known Drug Allergies Allergy Mild Active 11/22/10 Immunizations No immunization information available. Vital Signs Acute Vital Signs Vital Response Date/Time Temperature (Fahrenheit) 98.1 degrees F (97.6 - 99.5) 08/23/2017 8:44am Pulse Pulse Rate (adult) 66 bpm (60 - 90) 08/23/2017 8:44am Respiratory Rate 21 bpm (12 - 24) 08/23/2017 8:44am Blood Pressure 141/75 mm Hg 08/23/2017 8:44am Height 5 ft 0 in 08/19/2017 10:50pm Weight 190 lb 08/19/2017 10:50pm Body Mass Index 37.1 kg/m^2 08/19/2017 10:50pm Results Laboratory Results Test Name Result Units Flags Reference Collection Date/Time Result Date/ Time Comments Urine Color YELLOW YELLOW 03/16/2017 10:30am 03/16/2017 10:59am Urine Clarity HAZY CLEAR 03/16/2017 10:30am 03/16/2017 10:59am Urine Specific [place] 1.010 1.010-1.025 03/16/2017 10:30am 2016 10:59am Urine pH 6.5 5 - 7 03/16/2017 10:30am 03/16/2017 10:59am Urine Leukocyte Esterase 2+ H NEGATIVE 03/16/2017 10:30am 03/16/2017 10:59am Urine Nitrite NEGATIVE NEGATIVE 03/16/2017 10:30am 03/16/2017 10: 59am Urine Protein 1+ H NEGATIVE 03/16/2017 10:30am 03/16/2017 10:59am Urine Glucose (UA) NEGATIVE NEGATIVE 03/16/2017 10:30am 03/16/2017 10 :59am Urine Ketones NEGATIVE NEGATIVE 03/16/2017 10:30am 03/16/2017 10: 59am Urine Urobilinogen 0.2 mg/dL 0.2 - 1 03/16/2017 10:30am 03/16/2017 10: 59am Urine Bilirubin NEGATIVE NEGATIVE 03/16/2017 10:30am 03/16/2017 10: 59am Urine Blood 1+ H NEGATIVE 03/16/2017 10:30am 03/16/2017 10:59am Urine WBC 6-10 /HPF H 0-5 03/16/2017 10:30am 03/16/2017 11:19am Urine RBC 11-20 /HPF H 0-5 03/16/2017 10:30am 03/16/2017 11:19am Urine Bacteria NONE /HPF NONE 03/16/2017 10:30am 03/16/2017 11:19am Urine Epithelial Cells FEW /LPF NONE 03/16/2017 10:30am 03/16/2017 11: 19am White Blood Count 7.85 x10e3/uL 4.8-10.8 08/23/2017 7:08/23/2017 7 :11am Red Blood Count 3.47 x10e6/uL L 4.3-5.7 08/23/2017 7:08/23/2017 7: 11am Hemoglobin 12.0 g/dL L 14.0-18.0 08/23/2017 7:08/23/2017 7:11am Hematocrit 34.0 % L 38.2-49.6 08/23/2017 7:08/23/2017 7:11am Mean Corpuscular Volume 98.0 fL 81-99 08/23/2017 7:08/23/2017 7: 11am Mean Corpuscular Hemoglobin 34.6 pg H 28-32 08/23/2017 7:2017 7:11am Mean Corpuscular Hemoglobin Concent 35.3 g/dL H 31-35 08/23/2017 7:08/23/2017 7:11am Red Cell Distribution Width 12.0 % 11.7-14.4 08/23/2017 7:2017 7:11am Platelet Count 151 x10e3/uL 140-360 08/23/2017 7:08/23/2017 7: 11am Neutrophils (%) (Auto) 69.1 % 38.7-80.0 08/23/2017 7:08/23/2017 7: 11am Lymphocytes (%) (Auto) 15.8 % L 18.0-39.1 08/23/2017 7:08/23/2017 7 :11am Monocytes (%) (Auto) 9.6 % 4.4-11.3 08/23/2017 7:08/23/2017 7: 11am Eosinophils (%) (Auto) 4.8 % 0.0-6.0 08/23/2017 7:08/23/2017 7: 11am Basophils (%) (Auto) 0.3 % 0.0-1.0 08/23/2017 7:08/23/2017 7:11am IM GRANULOCYTES % 0.4 % 0.0-1.0 08/23/2017 7:08/23/2017 7:11am Neutrophils # (Auto) 5.4 2.1-6.9 08/23/2017 7:08/23/2017 7:11am Lymphocytes # (Auto) 1.2 1.0-3.2 08/23/2017 7:08/23/2017 7:11am Monocytes # (Auto) 0.8 0.2-0.8 08/23/2017 7:08/23/2017 7:11am Eosinophils # (Auto) 0.4 0.0-0.4 08/23/2017 7:08/23/2017 7:11am Basophils # (Auto) 0.0 0.0-0.1 08/23/2017 7:08/23/2017 7:11am Absolute Immature Granulocyte (auto 0.03 x10e3/uL 0-0.1 08/23/2017 7: 08/23/2017 7:11am Prothrombin Time 14.0 seconds 11.9-14.5 08/19/2017 2:00pm 08/19/2017 2: 18pm Prothromb Time International Ratio 1.17 08/19/2017 2:00pm 2017 2:18pm Oral Anticoagulant Therapy INR Values: 1. Low Intensity Therapy 1.5 - 2.0 2. Moderate Intensity Therapy 2.0 - 3.0 3. High Intensity Therapy(1) 2.5 - 3.5 4. High Intensity Therapy(2) 3.0 - 4.0 5. Panic Value INR > 5.0 Activated Partial Thromboplast Time 29.0 seconds 23.8-35.5 08/19/2017 2: 00pm 08/19/2017 2:18pm Sodium Level 133 mmol/L L 136-145 08/23/2017 7:0208/23/2017 7:25am Potassium Level 3.6 mmol/L 3.5-5.1 08/23/2017 7:0208/23/2017 7:25am Chloride Level 104 mmol/L 98-107 08/23/2017 7:0208/23/2017 7:25am Carbon Dioxide Level 23 mmol/L 22-29 08/23/2017 7:0208/23/2017 7: 25am Anion Gap 9.6 mmol/L 8-16 08/23/2017 7:0208/23/2017 7:25am Blood Urea Nitrogen 11 mg/dL 7-08/23/2017 7:0208/23/2017 7:25am Creatinine 1.12 mg/dL 0.72-1.25 08/23/2017 7:0208/23/2017 7:25am BUN/Creatinine Ratio 10 6-08/23/2017 7:0208/23/2017 7:25am Estimat Glomerular Filtration Rate > 60 ML/MIN 60- 08/23/2017 7:02 7:25am Ranges were taken from the National Kidney Disease Education Program and the National Kidney Foundation literature. Reference ranges: 60 or greater: Normal 16-59 (for 3 consecutive months): Chronic kidney disease 15 or less: Kidney failure Glucose Level 110 mg/dL 74-118 08/23/2017 7:0208/23/2017 7:25am Calcium Level 8.5 mg/dL 8.4-10.2 08/23/2017 7:0208/23/2017 7:25am Bedside Glucose 108 mg/dL 70-120 08/19/2017 9:12pm 08/19/2017 9:49pm Meter ID: [id number] Magnesium Level 1.6 MG/DL 1.3-2.1 08/20/2017 5:55am 08/20/2017 7:31am Total Bilirubin 1.1 mg/dL 0.2-1.2 08/21/2017 5:45am 08/21/2017 6:51am Aspartate Amino Transf (AST/SGOT) 37 IU/L H 5-34 08/21/2017 5:45am 08/21 6:51am Alanine Aminotransferase (ALT/SGPT) 19 IU/L 0-55 08/21/2017 5:45am 03/2018 6:51am Total Protein 6.0 g/dL L 6.5-8.1 08/21/2017 5:45am 08/21/2017 6:51am Albumin 3.0 g/dL L 3.5-5.0 08/21/2017 5:45am 08/21/2017 6:51am Globulin 3.0 g/dL 2.3-3.5 08/21/2017 5:45am 08/21/2017 6:51am Albumin/Globulin Ratio 1.0 0.8-2.0 08/21/2017 5:45am 08/21/2017 6: 51am Alkaline Phosphatase 65 IU/L 40-150 08/21/2017 5:45am 08/21/2017 6: 51am Microbiology Results Procedure Source Organism/Result Collection Date/Time Result Date/Time Result Status Blood Culture Blood NO GROWTH AFTER 24 HOURS 08/21/2017 9:40pm 08/22/2017 9:53pm Preliminary Procedures Procedure Status Date Provider(s) Resection of right kidney Completed 08/19/17 RAFIQ WALLS MD Computed tomography of chest with contrast Active 03/16/17 KAI GUILLAUME MD Computed tomography of abdomen and pelvis with contrast Active 03/16/17 KAI GUILLAUME MD Computed tomography of brain without radiopaque contrast Active 03/16/17 KAI GUILLAUME MD Computed tomography of cervical spine without contrast Active 03/16/17 KAI GUILLAUME MD Computed tomography of abdomen without then with contrast Active 05/02/17 SEAN BENSON MD Encounters Encounter Location Arrival/Admit Date Discharge/Depart Date Attending Provider Discharged Inpatient [facility] 08/19/17 6:49pm 08/23/17 1:35pm SEAN BENSON MD Registered Clinic [facility] 05/02/17 8:58am SEAN BENSON MD Departed Emergency Room [facility] 03/16/17 9:21am 1:56pm KAI GUILLAUME MD
[2017-10-13 10:00] LABS: CLARITY,URINE SL CLOUDY (CLEAR); COLOR,URINE YELLOW (YELLOW); LEUKOCYTE ESTERASE ,URINE 1+ (NEGATIVE)
[2017-10-13 10:01] LABS: BACTERIA,URINE FEW /HPF; BILIRUBIN,URINE NEGATIVE (NEGATIVE); EPITHELIAL CELLS,URINE FEW /LPF; KETONES,URINE NEGATIVE (NEGATIVE); NITRITE,URINE NEGATIVE (NEGATIVE); PROTEIN,URINE DIPSTICK TRACE (NEGATIVE); RBC,URINE 0-5 /HPF (0-5); URINE UROBILINOGEN 0.2 mg/dL (0.2 - 1)
--- NOTE | 2017-10-13 10:57 | Diagnostic Imaging Report ---
RIGHT SHOULDER X-RAY - 2 VIEWS HISTORY: \S\fell suspect AC separation \S\[id number] \S\1025 \S\N COMPARISON: None available. FINDINGS: Bones: Acute nondisplaced transverse fracture of the distal right clavicle. Mild separation of the acromioclavicular joint by 7 mm. Joints: The joint spaces are well-maintained. Soft tissues: The soft tissues appear unremarkable. IMPRESSION: Acute nondisplaced fracture of the distal right clavicle with mild separation of the acromioclavicular joint may relate to ligament injury. Recommend orthopedic consultation and follow-up x-ray in 4 weeks. Signed by: Dr. Kirstin Christian M.D. on 10/13/2017 10:54 AM
== END 2017-10-13 11:15 | disposition home or self-care (01) ==
LOC: ER 09:05
DX: S42.034A Nondisplaced fracture of lateral end of right clavicle, initial encounter for closed fracture (principal); W18.39XA Other fall on same level, initial encounter; Y93.64 Activity, baseball; Y92.320 Baseball field as the place of occurrence of the external cause; N30.90 Cystitis, unspecified without hematuria; I10 Essential (primary) hypertension; E78.5 Hyperlipidemia, unspecified; Z86.718 Personal history of other venous thrombosis and embolism
CPT/HCPCS: 81001; 87086; 99283

== ENCOUNTER 2018-01-31 20:57 | Emergency (ER) | payer BC, MEDICARE ==
[~2018-01-31] VITALS: Ht 180.3 cm; Wt 83.9 kg
[2018-01-31 21:16] LABS: BASOPHILS # (AUTO) 0.1 (0.0-0.1); BASOPHILS % 0.5 % (0.0-1.0); EOSINOPHILS # (AUTO) 0.3 (0.0-0.4); EOSINOPHILS % 2.9 % (0.0-6.0); HEMATOCRIT 41.7 % (38.2-49.6); HEMOGLOBIN 14.8 g/dL (14.0-18.0); LYMPHOCYTES # (AUTO) 2.8 (1.0-3.2); LYMPHOCYTES % 29.6 % (18.0-39.1); MEAN CORPUSCULAR HEMOGLOBIN 34.3 pg (28-32); MEAN CORPUSCULAR HGB CONC 35.5 g/dL (31-35); MEAN CORPUSCULAR VOLUME 96.8 fL (81-99); MONOCYTES # (AUTO) 0.6 (0.2-0.8); MONOCYTES % 6.4 % (4.4-11.3); NEUTROPHILS # (AUTO) 5.6 (2.1-6.9); NEUTROPHILS % 60.2 % (38.7-80.0); PLATELET COUNT 196 x10e3/uL (140-360); RED BLOOD COUNT 4.31 x10e6/uL (4.3-5.7); RED CELL DISTRIBUTION WIDTH 12.9 % (11.7-14.4)
[2018-01-31 21:25] LABS: INR 2.92; PARTIAL THROMBOPLASTIN TIME 42.2 seconds (23.8-35.5); PROTHROMBIN TIME 32.6 seconds (11.9-14.5)
[2018-01-31 21:26] LABS: CLARITY,URINE CLOUDY (CLEAR); LEUKOCYTE ESTERASE ,URINE 1+ (NEGATIVE); NITRITE,URINE POSITIVE (NEGATIVE); PROTEIN,URINE DIPSTICK 2+ (NEGATIVE)
[2018-01-31 21:27] LABS: BILIRUBIN,URINE NEGATIVE (NEGATIVE); COLOR,URINE RED (YELLOW); KETONES,URINE 1+ (NEGATIVE); URINE UROBILINOGEN 1 mg/dL (0.2 - 1)
[2018-01-31 21:34] LABS: ALANINE AMINOTRANSFERASE 17 IU/L (0-55); ALBUMIN/GLOBULIN RATIO 1.3 (0.8-2.0); ALKALINE PHOSPHATASE 85 IU/L (40-150); ANION GAP 14.6 mmol/L (8-16); BLOOD UREA NITROGEN 15 mg/dL (7-26); BUN/CREATININE RATIO 15 (6-25); CALCIUM 9.1 mg/dL (8.4-10.2); CARBON DIOXIDE 20 mmol/L (22-29); CHLORIDE 112 mmol/L (98-107); CREATININE, SERUM 0.98 mg/dL (0.72-1.25); EST GLOMERULAR FILTRATION RATE > 60 ML/MIN (60-); GLUCOSE 110 mg/dL (74-118); POTASSIUM 3.6 mmol/L (3.5-5.1); SODIUM 143 mmol/L (136-145)
[2018-01-31 21:41] LABS: RBC,URINE >50 /HPF (0-5)
[2018-01-31 21:42] LABS: BACTERIA,URINE MANY /HPF
[2018-01-31] MEDS ORDERED: SODIUM CHLORIDE 0.9% 250ML 250 ML ONE (22:40)
[2018-01-31] MEDS ORDERED: IOPAMIDOL 370 MG/ML 200 ML INFUS..BTL INJ ONE (22:40)
--- NOTE | 2018-02-01 00:22 | Diagnostic Imaging Report ---
EXAM: CT ABDOMEN/PELVIS WOW DATE: 01/31/2018 9:40 PM INDICATION: Hematuria, history of renal cancer. Patient denies urinary frequency or urgency. COMPARISON: None TECHNIQUE: The abdomen and pelvis were scanned using a multidetector helical scanner. Coronal and sagittal reformations were obtained. CT Urogram protocol performed. IV Contrast: 150 mL of Isovue-370 FINDINGS: LOWER THORAX: No consolidations LIVER/BILIARY: Stable right liver cyst. No ductal dilatation. GALLBLADDER/SPLEEN/PANCREAS: Nonenhancing soft tissue within the fundus, likely layering gallbladder sludge. Otherwise unremarkable. ADRENALS: No nodules KIDNEYS/URETERS/BLADDER: Postsurgical changes status post partial right nephrectomy with resection of previous right inferior renal mass. No hydronephrosis. No stone disease or filling defects in the collecting system; note the right distal ureter is not opacified. There is a 1.1 cm soft tissue nodule along the anterior bladder; note the patient is prone for imaging. GI TRACT: No distention, wall thickening or evidence of obstruction. Appendectomy. VESSELS: IVC filter is in place. Mild atherosclerotic changes. PERITONEUM/RETROPERITONEUM: No free air or fluid LYMPH NODES: No lymphadenopathy REPRODUCTIVE ORGANS: Prostatomegaly. SOFT TISSUES: Small fat-containing right inguinal hernia. BONES: Remote bilateral rib fractures. IMPRESSION: 1. Expected postsurgical changes status post right partial nephrectomy for previously seen renal mass. 2. Soft tissue nodule along the anterior bladder, most suspicious for transitional cell carcinoma. No evidence of upper tract disease. Recommend correlation with urine cytology and direct visualization. Signed by: Dr Lyric Bourne MD on 02/01/2018 12:18 AM
[2018-02-01 00:42] VITALS: BP 124/80
== END 2018-02-01 00:48 | disposition home or self-care (01) ==
LOC: ER 20:57
DX: N30.91 Cystitis, unspecified with hematuria (principal); Z85.528 Personal history of other malignant neoplasm of kidney
CPT/HCPCS: 36415; 74178; 80053; 81001; 85025; 85610; 85730; 87086; 99284; J7050; Q9967

== ENCOUNTER 2018-04-24 05:24 | Inpatient (IN) | payer BC, MEDICARE ==
[2018-04-23 09:47] LABS: BASOPHILS # (AUTO) 0.1 (0.0-0.1); BASOPHILS % 0.7 % (0.0-1.0); EOSINOPHILS # (AUTO) 0.5 (0.0-0.4); EOSINOPHILS % 5.2 % (0.0-6.0); HEMATOCRIT 48.5 % (38.2-49.6); HEMOGLOBIN 16.8 g/dL (14.0-18.0); LYMPHOCYTES % 31.6 % (18.0-39.1); MEAN CORPUSCULAR HEMOGLOBIN 34.6 pg (28-32); MEAN CORPUSCULAR HGB CONC 34.6 g/dL (31-35); MEAN CORPUSCULAR VOLUME 99.8 fL (81-99); MONOCYTES # (AUTO) 0.9 (0.2-0.8); MONOCYTES % 9.3 % (4.4-11.3); NEUTROPHILS % 52.9 % (38.7-80.0); PLATELET COUNT 213 x10e3/uL (140-360); RED BLOOD COUNT 4.86 x10e6/uL (4.3-5.7); RED CELL DISTRIBUTION WIDTH 12.9 % (11.7-14.4)
[2018-04-23 10:11] LABS: ANION GAP 14.9 mmol/L (8-16); BLOOD UREA NITROGEN 16 mg/dL (7-26); BUN/CREATININE RATIO 16 (6-25); CALCIUM 9.4 mg/dL (8.4-10.2); CARBON DIOXIDE 23 mmol/L (22-29); CHLORIDE 103 mmol/L (98-107); CREATININE, SERUM 0.98 mg/dL (0.72-1.25); EST GLOMERULAR FILTRATION RATE > 60 ML/MIN (60-); GLUCOSE 122 mg/dL (74-118); POTASSIUM 4.9 mmol/L (3.5-5.1); SODIUM 136 mmol/L (136-145)
--- NOTE | 2018-04-23 10:17 | Diagnostic Imaging Report ---
PROCEDURE: Frontal and lateral views of the chest. COMPARISON: Chest radiograph 08/19/17. INDICATIONS: PRE OPERATIVE FOR PROSTATISM . NO CHEST PAINS OR SOB. FINDINGS: Lines/tubes: None. Lungs: The lungs are well inflated and clear. There is no evidence of pneumonia or pulmonary edema. Pleura: There is no pleural effusion or pneumothorax. Heart and mediastinum: The cardiomediastinal silhouette is unremarkable. Bones: No acute bony abnormality. IMPRESSION: No acute radiographic abnormality. Dictated by: TATA HOLGUIN M.D. on 04/23/2018 at 10:27 Electronically approved by: TATA HOLGUIN M.D. on 04/23/2018 at 10:27
[~2018-04-24] VITALS: Ht 180.3 cm; Wt 89.6 kg
[2018-04-24] MEDS ORDERED: GENTAMICIN 80MG/NS 100 ML 200 ML IV ONE (05:43)
[2018-04-24] MEDS ORDERED: CEFTRIAXONE SOD 1 GM VIAL ONE (05:43)
[2018-04-24 06:09] LABS: INR 1.08
[2018-04-24 06:10] LABS: PARTIAL THROMBOPLASTIN TIME 32.4 seconds (23.8-35.5)
[2018-04-24] MEDS ORDERED: IOPAMIDOL 610MG/1ML 300 MG/ML VIAL IV ONE (06:12)
[2018-04-24] MEDS ORDERED: BELLADONNA/OPIUM 60 MG SUPP PR ONE (09:30)
[2018-04-24] MEDS ORDERED: DIPHENHYDRAMINE HCL 25 MG CAP PO PRN (09:45)
[2018-04-24] MEDS ORDERED: BELLADONNA/OPIUM 60 MG SUPP PR PRN (09:45)
[2018-04-24] MEDS ORDERED: MORPHINE SULFATE 1 MG/ML 30ML PCA IV PRN (09:45)
[2018-04-24] MEDS ORDERED: ONDANSETRON HCL INJ 2 MG/ML VIAL IV PRN (09:45)
[2018-04-24] MEDS ORDERED: NALOXONE HCL INJ 0.4 MG/ML AMP IV PRN (09:45)
[2018-04-24] MEDS ORDERED: HYDROMORPHONE 2MG/ML 2 MG/ML ML ONE (11:04)
[2018-04-24] MEDS ORDERED: MORPHINE SULFATE 1 MG/ML 30ML PCA ONE (12:28)
[2018-04-24 16:00] VITALS: BP 114/65
[2018-04-24] MEDS: D5.45%NS/KCL 20MEQ 1,000 ML IV SCH (16:00)
[2018-04-24 17:16] VITALS: BP 114/65
[2018-04-24] MEDS: DOCUSATE SODIUM 100 MG CAP PO SCH (17:49)
[2018-04-24] MEDS ORDERED: PROPOFOL IV EMULSION 10 MG/ML 20 ML VIAL ONE (18:41)
[2018-04-24] MEDS ORDERED: FUROSEMIDE INJ 10 MG/ML 4 ML VIAL ONE (18:41)
[2018-04-24] MEDS ORDERED: DEXAMETHASONE SOD PHOS INJ 4 MG/ML VIAL ONE (18:41)
[2018-04-24] MEDS ORDERED: SEVOFLURANE INHAL SOLN 250 ML PEN BTL ONE (18:41)
[2018-04-24] MEDS ORDERED: LIDOCAINE HCL 2% LOCAL INJ 5 ML SDV VIAL INJ ONE (18:41)
[2018-04-24] MEDS ORDERED: FENTANYL CITRATE/PF 100MCG/2 ML INJ ONE (18:41)
[2018-04-24] MEDS ORDERED: ONDANSETRON HCL INJ 2 MG/ML VIAL ONE (18:41)
[2018-04-24] MEDS ORDERED: MIDAZOLAM HCL 2 MG/2 ML VIAL ONE (18:41)
[2018-04-24 20:00] VITALS: BP 109/62
[2018-04-24 20:11] VITALS: BP 109/62
[2018-04-25] VITALS (9 sets, daily range): BP systolic 102–118; BP diastolic 55–60
[2018-04-25] MEDS: D5.45%NS/KCL 20MEQ 1,000 ML IV SCH ×2 (00:03→08:39)
[2018-04-25 05:09] LABS: BASOPHILS % 0.1 % (0.0-1.0); EOSINOPHILS # (AUTO) 0.1 (0.0-0.4); EOSINOPHILS % 0.4 % (0.0-6.0); HEMATOCRIT 37.5 % (38.2-49.6); HEMOGLOBIN 12.9 g/dL (14.0-18.0); LYMPHOCYTES # (AUTO) 1.7 (1.0-3.2); LYMPHOCYTES % 10.9 % (18.0-39.1); MEAN CORPUSCULAR HEMOGLOBIN 35.3 pg (28-32); MEAN CORPUSCULAR HGB CONC 34.4 g/dL (31-35); MEAN CORPUSCULAR VOLUME 102.7 fL (81-99); MONOCYTES # (AUTO) 0.7 (0.2-0.8); MONOCYTES % 4.8 % (4.4-11.3); NEUTROPHILS # (AUTO) 12.9 (2.1-6.9); NEUTROPHILS % 83.4 % (38.7-80.0); PLATELET COUNT 177 x10e3/uL (140-360); RED BLOOD COUNT 3.65 x10e6/uL (4.3-5.7); RED CELL DISTRIBUTION WIDTH 13.2 % (11.7-14.4)
[2018-04-25 05:26] LABS: ANION GAP 12.7 mmol/L (8-16); BLOOD UREA NITROGEN 13 mg/dL (7-26); BUN/CREATININE RATIO 14 (6-25); CALCIUM 8.3 mg/dL (8.4-10.2); CARBON DIOXIDE 23 mmol/L (22-29); CHLORIDE 104 mmol/L (98-107); CREATININE, SERUM 0.92 mg/dL (0.72-1.25); EST GLOMERULAR FILTRATION RATE > 60 ML/MIN (60-); GLUCOSE 161 mg/dL (74-118); POTASSIUM 4.7 mmol/L (3.5-5.1); SODIUM 135 mmol/L (136-145)
--- NOTE | 2018-04-25 08:15 | Operative Report ---
DATE OF PROCEDURE: April 24, 2018 PREOPERATIVE DIAGNOSES 1. Obstructive BPH. 2. Urinary tract infection. 3. Gross hematuria. POSTOPERATIVE DIAGNOSES 1. Obstructive BPH. 2. Urinary tract infection. 3. Gross hematuria. OPERATIONS PERFORMED 1. Cystourethroscopy with bilateral ureteral catheterization and retrograde ureteropyelography (separate procedure performed for the hematuria and urinary tract infections). 2. Interpretation of retrograde ureteropyelography. 3. Supervision of fluoroscopy. No radiologist present. 4. Cystourethroscopy with transurethral resection of prostate utilizing the PlasmaButton electrode. ANESTHESIA: General. COMPLICATIONS: None. CLINICAL SUMMARY: Don Stone is a 73-year-old man with the above preoperative diagnosis. He has a large postvoid residual. He was brought for the above procedures. He is aware of the risks of bleeding, infection, injury to adjacent structures, need for additional procedures, and he elected to proceed. OPERATIVE PROCEDURE IN DETAIL: Informed consent was verified. Don Stone was properly identified, taken to the operating room, placed on the cystoscopy table in supine position. Anesthesia was uneventfully begun. The patient was then carefully and gently repositioned in the dorsal lithotomy position with all pressure points well padded. His genitalia were prepared and draped in usual sterile fashion. A 22.5-Icelandic cystoscope sheath with the visual obturator in place was atraumatically inserted in the patient's urethra. It was guided down the unremarkable distal urethra through the normal sphincteric region through the prostate bed, which was significant for trilobar prostatic hypertrophy with kissing lateral lobes and a small median lobe. Panendoscopy of urinary bladder revealed grade-2 trabeculations, but no tumors, no stones, and no diverticula. Normally positioned and configured ureteral orifices were identified. An 8-Icelandic catheter was used to cannulate each ureter and retrograde ureteropyelography was performed. Interpretation of retrograde ureteropyelography: Contrast was instilled in retrograde fashion bilaterally. The left side was unremarkable. There were no tumors, no stones, and no diverticula. Unobstructed drainage was observed bilaterally fluoroscopically. The calices were sharp and delicate. The right side exhibited a normal ureter to the level of the proximal ureter, where there seemed to be a kink in the ureter and proximal to that kink, there seems be relative hydronephrosis. Nevertheless, the patient's collecting systems drained promptly. The calices were sharp and delicate. There were multiple clips as well as an IVC filter noted. No filling and no suspicious lesions were identified. The bladder was drained. The cystoscope was withdrawn. The resectoscope was atraumatically passed. We then proceeded to performing PlasmaButton vaporization. First, we worked on eliminating the median lobe, then we worked from the bladder neck to but never past the verumontanum and down to the surgical capsule throughout. Pinpoint electrocautery was utilized to achieve hemostasis. The resectoscope was withdrawn. The Palmer catheter was placed. It was on continuous irrigation with clear efflux and the patient was uneventfully reversed from anesthesia and taken to recovery room in stable condition. There were no complications to the procedure. He tolerated the procedure well. Explicit postop instructions were left in the chart. Will plan to admit the patient for continuous bladder irrigation as well close monitoring as well as sequential compression devices while he is off his blood thinners. The patient is a high risk patient due to the fact that he has previous DVT as well as previous pulmonary embolus. Job#: [id number] cc:SEAN BENSON M.D.
[2018-04-25] MEDS: DOCUSATE SODIUM 100 MG CAP PO SCH ×2 (08:38→17:36)
--- NOTE | 2018-04-25 09:37 | Consultation ---
DATE OF CONSULTATION: April 25, 2018 MEDICAL CONSULTATION REASON FOR MEDICAL CONSULTATION: Medical management. HISTORY OF PRESENT ILLNESS: A 73-year-old pleasant white male with past medical history of multiple medical problems was admitted by urologist, Dr. Jeovanny Hawkins yesterday for TURP for prostatism. The patient had surgery done yesterday. The patient in no apparent distress this morning. No chest pain. No shortness of breath. No nausea, vomiting or diarrhea. No abdominal pain, loss of consciousness. No palpitations. No headaches. No hematemesis. No melena. No hematuria. No dysuria. No fever. No cough. No witnessed seizures. PAST MEDICAL HISTORY 1. Recurrent PE. 2. Left leg DVT. 3. Right renal cell carcinoma, status post right partial nephrectomy. 4. Hyperlipidemia. 5. Hypertension. SURGICAL HISTORY: Right partial nephrectomy in August 2017 for RCC, TURP for prostatism. SOCIAL HISTORY: Former smoker. No alcohol. No illicit drug use. and lives with family. ALLERGIES: NO KNOWN DRUG ALLERGIES. FAMILY HISTORY: Noncontributory. REVIEW OF SYSTEMS: As per HPI. PHYSICAL EXAMINATION GENERAL: The patient is alert and oriented times 3. No apparent distress. Lying in bed. VITALS: Temperature is 97, pulse is 70 per minute, respiratory rate 18 per minute, blood pressure is 110/70, and saturation is 97%. HEENT: No cyanosis. No icterus. No pallor. Normocephalic and atraumatic. PERRLA. NECK: Soft and supple. No JVD. LUNGS: Normal air entry bilaterally. HEART: S1 and S2 normal. ABDOMEN: Soft and nontender. Bowel sounds plus. [employer]: Alert, awake and oriented times 3. No focal deficit EXTREMITIES: No cyanosis, clubbing or edema. No calf pain. : Palmer catheter plus. Gross hematuria plus. White count this morning is 15.49, preop 9.44, hemoglobin 12.93 and preop 16.8, hematocrit 37.5 and platelets 177,000. Sodium 135, potassium 4.7, chloride 104, bicarb 23, BUN 13, creatinine 0.9, glucose 161. Magnesium 1.9. Chest x-ray with no acute radiographic abnormality. EKG shows sinus bradycardia at 58 beats per minute. No acute ST-T changes. ASSESSMENT 1. Status post transurethral resection of prostate for prostatism. 2. History of hypertension. 3. Hyperlipidemia. 4. Recurrent pulmonary embolism. 5. Left lower extremity deep venous thrombosis. PLAN: The patient is admitted to med/surg. Postop care as per urologist, Dr. Hawkins. Will hold the patient's home blood pressure and cholesterol medications. Restart anticoagulation with Coumadin once it is cleared by urologist, Dr. Hawkins. Patient is having gross hematuria. Currently, status post surgery. Further care and treatment of the patient in the hospital. Discussed with patient and in detail. Will follow with you. Job#: [id number] ASHU
[2018-04-25] MEDS ORDERED: ACETAMINOPHEN/CODEINE 300MG - 30MG TAB PO PRN (11:45)
[2018-04-26] VITALS (8 sets, daily range): BP systolic 107–134; BP diastolic 9–78
[2018-04-26 05:15] LABS: BASOPHILS # (AUTO) 0.1 (0.0-0.1); BASOPHILS % 0.6 % (0.0-1.0); EOSINOPHILS # (AUTO) 0.5 (0.0-0.4); EOSINOPHILS % 4.2 % (0.0-6.0); HEMATOCRIT 34.1 % (38.2-49.6); HEMOGLOBIN 11.6 g/dL (14.0-18.0); LYMPHOCYTES # (AUTO) 3.3 (1.0-3.2); LYMPHOCYTES % 30.5 % (18.0-39.1); MEAN CORPUSCULAR HEMOGLOBIN 34.7 pg (28-32); MEAN CORPUSCULAR VOLUME 102.1 fL (81-99); MONOCYTES # (AUTO) 0.8 (0.2-0.8); MONOCYTES % 7.1 % (4.4-11.3); NEUTROPHILS # (AUTO) 6.1 (2.1-6.9); NEUTROPHILS % 56.9 % (38.7-80.0); PLATELET COUNT 166 x10e3/uL (140-360); RED BLOOD COUNT 3.34 x10e6/uL (4.3-5.7); RED CELL DISTRIBUTION WIDTH 13.1 % (11.7-14.4)
[2018-04-26 05:35] LABS: ANION GAP 11.8 mmol/L (8-16); BLOOD UREA NITROGEN 16 mg/dL (7-26); BUN/CREATININE RATIO 18 (6-25); CALCIUM 7.9 mg/dL (8.4-10.2); CARBON DIOXIDE 22 mmol/L (22-29); CHLORIDE 111 mmol/L (98-107); CREATININE, SERUM 0.87 mg/dL (0.72-1.25); EST GLOMERULAR FILTRATION RATE > 60 ML/MIN (60-); GLUCOSE 104 mg/dL (74-118); POTASSIUM 3.8 mmol/L (3.5-5.1); SODIUM 141 mmol/L (136-145)
[2018-04-26] MEDS: DOCUSATE SODIUM 100 MG CAP PO SCH ×2 (08:24→17:06)
[2018-04-27] VITALS: BP 110/57
[2018-04-27 04:00] VITALS: BP 116/60
[2018-04-27 04:46] LABS: BASOPHILS # (AUTO) 0.1 (0.0-0.1); BASOPHILS % 0.6 % (0.0-1.0); EOSINOPHILS # (AUTO) 0.6 (0.0-0.4); EOSINOPHILS % 6.5 % (0.0-6.0); HEMATOCRIT 35.5 % (38.2-49.6); HEMOGLOBIN 12.4 g/dL (14.0-18.0); LYMPHOCYTES # (AUTO) 2.5 (1.0-3.2); LYMPHOCYTES % 27.1 % (18.0-39.1); MEAN CORPUSCULAR HEMOGLOBIN 34.8 pg (28-32); MEAN CORPUSCULAR HGB CONC 34.9 g/dL (31-35); MEAN CORPUSCULAR VOLUME 99.7 fL (81-99); MONOCYTES # (AUTO) 0.7 (0.2-0.8); MONOCYTES % 7.2 % (4.4-11.3); NEUTROPHILS # (AUTO) 5.4 (2.1-6.9); NEUTROPHILS % 58.1 % (38.7-80.0); PLATELET COUNT 168 x10e3/uL (140-360); RED BLOOD COUNT 3.56 x10e6/uL (4.3-5.7); RED CELL DISTRIBUTION WIDTH 12.9 % (11.7-14.4)
[2018-04-27 05:12] LABS: BLOOD UREA NITROGEN 13 mg/dL (7-26); BUN/CREATININE RATIO 16 (6-25); CALCIUM 8.6 mg/dL (8.4-10.2); CARBON DIOXIDE 22 mmol/L (22-29); CHLORIDE 108 mmol/L (98-107); EST GLOMERULAR FILTRATION RATE > 60 ML/MIN (60-); GLUCOSE 103 mg/dL (74-118); SODIUM 139 mmol/L (136-145)
[2018-04-27 08:23] VITALS: BP 109/64
[2018-04-27] MEDS: DOCUSATE SODIUM 100 MG CAP PO SCH (08:55)
[2018-04-27 09:55] VITALS: BP 109/64
[2018-04-27 13:02] VITALS: BP 118/70
[2018-04-27] MEDS ORDERED: TYLENOL WITH C1 EACH PO (13:04)
[2018-04-27] MEDS ORDERED: LEVAQUIN500 MG PO (13:04)
== END 2018-04-27 13:12 | disposition home or self-care (01) | DRG 713 ==
LOC: OR 05:24 → PACU V 09:39 → MED/SURG 15:35
PROVIDERS: ADMIT Internal Medicine; ATTEND Internal Medicine
PROC: BT141ZZ Fluoroscopy of Kidneys, Ureters and Bladder using Low Osmolar Contrast (ICD-10-PCS; 2018-04-24)
PROC: 0V508ZZ Destruction of Prostate, Via Natural or Artificial Opening Endoscopic (ICD-10-PCS; principal; 2018-04-24 07:00)
DX: N40.1 Benign prostatic hyperplasia with lower urinary tract symptoms (principal); N13.8 Other obstructive and reflux uropathy; N39.0 Urinary tract infection, site not specified; E78.5 Hyperlipidemia, unspecified; I10 Essential (primary) hypertension; Z86.711 Personal history of pulmonary embolism; Z86.718 Personal history of other venous thrombosis and embolism; Z79.01 Long term (current) use of anticoagulants; Z85.528 Personal history of other malignant neoplasm of kidney; Z90.5 Acquired absence of kidney; Z87.891 Personal history of nicotine dependence
CPT/HCPCS: 36415; 71046; 74420; 80048; 83735; 85025; 85610; 85730; 93005; J0696; J1100; J1580; J1940; J2001; J2250; J2270; J2405

== ENCOUNTER 2020-05-29 11:14 | Emergency (ER) | payer BC ==
[~2020-05-29] VITALS: Ht 180.3 cm; Wt 84.4 kg
[~2020-05-29 11:14] MED LIST changes: +LEVAQUIN500 MG PO; +TYLENOL WITH C1 EACH PO
[2020-05-29] MEDS ORDERED: SODIUM CHLORIDE 0.9% 1000ML 1,000 ML IV STA (11:37)
[2020-05-29] MEDS ORDERED: ONDANSETRON HCL INJ 2MG/ML 2ML 2 MG/ML VIAL IV STA (11:37)
[2020-05-29] MEDS ORDERED: HYDROMORPHONE 1MG/1ML INJ IV STA (11:37)
[2020-05-29 12:32] LABS: BASOPHILS # (AUTO) 0.1 (0.0-0.1); BASOPHILS % 0.7 % (0.0-1.0); EOSINOPHILS # (AUTO) 0.4 (0.0-0.4); HEMATOCRIT 45.3 % (38.2-49.6); HEMOGLOBIN 15.4 g/dL (14.0-18.0); LYMPHOCYTES # (AUTO) 1.7 (1.0-3.2); LYMPHOCYTES % 22.5 % (18.0-39.1); MEAN CORPUSCULAR HEMOGLOBIN 33.1 pg (28-32); MEAN CORPUSCULAR VOLUME 97.4 fL (81-99); MONOCYTES # (AUTO) 0.9 (0.2-0.8); MONOCYTES % 12.3 % (4.4-11.3); NEUTROPHILS # (AUTO) 4.4 (2.1-6.9); NEUTROPHILS % 59.1 % (38.7-80.0); PLATELET COUNT 249 x10e3/uL (140-360); RED BLOOD COUNT 4.65 x10e6/uL (4.3-5.7); RED CELL DISTRIBUTION WIDTH 12.3 % (11.7-14.4)
[2020-05-29 12:34] LABS: CLARITY,URINE CLOUDY (CLEAR); COLOR,URINE YELLOW (YELLOW); LEUKOCYTE ESTERASE ,URINE LARGE (NEGATIVE); NITRITE,URINE POSITIVE (NEGATIVE)
[2020-05-29 12:35] LABS: KETONES,URINE NEGATIVE (NEGATIVE); PROTEIN,URINE DIPSTICK 2+ (NEGATIVE); URINE UROBILINOGEN 0.2 mg/dL (0.2 - 1)
[2020-05-29 12:36] LABS: INR 1.34; PROTHROMBIN TIME 17.5 seconds (11.9-14.5)
[2020-05-29] MEDS ORDERED: PIPER-TAZ 3.375 GM 50 ML IV ONE (12:45)
[2020-05-29 12:47] LABS: ALANINE AMINOTRANSFERASE 27 IU/L (0-55); ALBUMIN 3.5 g/dL (3.5-5.0); ALBUMIN/GLOBULIN RATIO 0.9 (0.8-2.0); ALKALINE PHOSPHATASE 90 IU/L (40-150); ANION GAP 14.9 mmol/L (8-16); BLOOD UREA NITROGEN 16 mg/dL (7-26); BUN/CREATININE RATIO 17 (6-25); CALCIUM 9.2 mg/dL (8.4-10.2); CARBON DIOXIDE 26 mmol/L (22-29); CHLORIDE 103 mmol/L (98-107); CREATININE, SERUM 0.94 mg/dL (0.72-1.25); EST GLOMERULAR FILTRATION RATE > 60 ML/MIN (60-); GLUCOSE 103 mg/dL (74-118); POTASSIUM 3.9 mmol/L (3.5-5.1); SODIUM 140 mmol/L (136-145)
[2020-05-29 12:50] LABS: BACTERIA,URINE MODERATE /HPF; EPITHELIAL CELLS,URINE FEW /LPF; RBC,URINE >50 /HPF (0-5); WBC,URINE (MAN) >50 /HPF (0-5)
[2020-05-29] MEDS ORDERED: SODIUM CHLORIDE 0.9% 50ML 50 ML ONE (13:26)
[2020-05-29] MEDS ORDERED: IOPAMIDOL 370 MG/ML 200 ML INFUS..BTL INJ ONE (13:26)
[2020-05-29] MEDS ORDERED: LEVOFLOXACIN500 MG PO (16:13)
[2020-05-29] MEDS ORDERED: TYLENOL # 31 EA PO (16:13)
[2020-05-29 16:22] VITALS: BP 134/85
== END 2020-05-29 16:23 | disposition home or self-care (01) ==
LOC: ER 12:04
DX: R10.32 Left lower quadrant pain (principal); N50.812 Left testicular pain; N45.2 Orchitis; N39.0 Urinary tract infection, site not specified; R30.0 Dysuria
CPT/HCPCS: 36415; 74177; 76870; 80053; 81001; 83735; 85025; 85610; 85730; 87040; 87086; 87186; 93976; 99283; J1170; J2405; J2543; J7030; Q9967

== ENCOUNTER 2021-02-01 17:58 | Emergency (ER) | payer BC ==
[~2021-02-01] VITALS: Ht 180.3 cm; Wt 83.9 kg
[~2021-02-01 17:58] MED LIST changes: +LEVOFLOXACIN500 MG PO; +TYLENOL # 31 EA PO
[2021-02-01] MEDS ORDERED: LIDOCAINE HCL 2% LOCAL 20 ML VIAL ONE (18:26)
[2021-02-01] MEDS ORDERED: LIDOCAINE HCL 2% LOCAL 20 ML VIAL INJ ONE (18:30)
[2021-02-01] MEDS ORDERED: BACITRACIN ZINC 0.9GM TP SCH (18:45)
[2021-02-01] MEDS ORDERED: DOXYCYCLINE HY100 MG PO (18:56)
== END 2021-02-01 19:39 | disposition home or self-care (01) ==
LOC: ER 18:57
DX: S51.822A Laceration with foreign body of left forearm, initial encounter (principal); W26.8XXA Contact with other sharp object(s), not elsewhere classified, initial encounter; I10 Essential (primary) hypertension; Z79.01 Long term (current) use of anticoagulants; Z86.718 Personal history of other venous thrombosis and embolism
CPT/HCPCS: 12001; 99282; J2001